=== PATIENT | female | born 1965 | race Native Hawaiian/Other Pacific Islander ===

== ENCOUNTER → 2016-08-18 | Outpatient (CLI) | payer OTHER ==
[~2016-08-18] MED LIST: ALBUTEROL SULFATE 2.5 MG/3 ML VIAL NEB ONE
== END | disposition home or self-care (01) ==
LOC: RESP 13:41
PROVIDERS: ATTEND General Practice
DX: R06.02 Shortness of breath (principal)
CPT/HCPCS: 94060; J7611